=== PATIENT | female | born 1975 | race Caucasian/White ===

== ENCOUNTER 2020-11-19 04:05 | Emergency (ER) | payer OTHER ==
[~2020-11-19] VITALS: Ht 157.5 cm; Wt 56.7 kg
[2020-11-19 04:05] VITALS: BP_SYST 129
--- NOTE | 2020-11-19 04:05 | NUR ---
Pt ambulatory, AAO x 4 c/o rapid heart beat which began just an hour ago. The patient stated that she felt her heart speed up, and developed a dry mouth. She denied any dizziness or lightheadedness, denied shortness of breath. She stated that she has been experiencing some abdominal pain. No nausea/vomiting. She stated that one month ago, she had a similar episode and was diagnosed with A-Fib. Patient breathing easy, unlbored. Awating ER MD to minor
--- NOTE | 2020-11-19 04:23 | NUR ---
GRAHAM Sanchez examining patient.
[2020-11-19] MEDS ORDERED: DILT60TA3 PO (04:38)
[2020-11-19] MEDS ORDERED: CITA40TA22 PO (04:39)
[2020-11-19] MEDS ORDERED: ALPR0.5T PO (04:40)
[2020-11-19 04:49] LABS: BASOPHILS # (AUTO) 0.1 K/uL (0.0-0.2); EOSINOPHILS # (AUTO) 0.1 K/uL (0.0-0.4); EOSINOPHILS % (AUTO) 1.7 % (0.0-4.0); HEMATOCRIT 42.1 % (36-48); HEMOGLOBIN 13.9 g/dL (12.0-16.0); LYMPHOCYTES # (AUTO) 4.5 K/uL (1.0-5.5); LYMPHOCYTES % (AUTO) 60.7 % (20.5-51.5); MEAN CORPUSCULAR HEMOGLOBIN 30 pg (27-31); MEAN CORPUSCULAR HGB CONC 33 % (32-36); MEAN CORPUSCULAR VOLUME 90 fL (79.0-98.0); MONOCYTES # (AUTO) 0.5 K/uL (0.0-1.0); MONOCYTES % (AUTO) 6.6 % (1.7-9.3); NEUTROPHILS # (AUTO) 2.2 K/uL (1.8-7.7); PLATELET COUNT (AUTO) 415 K/uL (130-430); RED BLOOD CELL COUNT(AUTO) 4.69 MIL/uL (4.2-6.2); WHITE BLOOD COUNT (AUTO) 7.5 K/uL (4.8-10.8)
[2020-11-19 04:58] LABS: CREATININE 0.91 mg/dL (0.55-1.30); POTASSIUM 3.3 mmol/L (3.5-5.1)
[2020-11-19 05:04] LABS: ALBUMIN 4.1 g/dL (3.4-4.8); TOTAL BILIRUBIN 0.2 mg/dL (0.0-1.0)
[2020-11-19 05:17] LABS: INR 0.9 (0.8-1.2); PROTHROMBIN TIME 9.3 SECS (9.5-12.5)
[2020-11-19 05:28] LABS: BILIRUBIN,URINE NEGATIVE (NEGATIVE); BLOOD, URINE 3+ (NEGATIVE); CLARITY/URINE CLOUDY (CLEAR); COLOR,URINE RED (YELLOW); GLUCOSE,URINE NEGATIVE (NEGATIVE); KETONES,URINE TRACE (NEGATIVE); LEUKOCYTE ESTERASE ,URINE TRACE (NEGATIVE); NITRITE, URINE POSITIVE (NEGATIVE); PROTEIN URINE 2+ (NEGATIVE); UROBILINOGEN,URINE 0.2 (0.2-1.0)
[2020-11-19 05:32] LABS: BACTERIA,URINE MODERATE /HPF (None Seen); RBC,URINE >100 /HPF (0-3)
[2020-11-19] MEDS ORDERED: cephALEXin 500 MG CAPSULE ONE (05:56)
[2020-11-19] MEDS ORDERED: PANTOPRAZOLE SODIUM 40 MG TAB ONE (05:56)
[2020-11-19] MEDS ORDERED: cephALEXin 500 MG CAPSULE PO ONE (06:00)
[2020-11-19] MEDS ORDERED: PANTOPRAZOLE SODIUM 40 MG TAB PO ONE (06:00)
[2020-11-19 06:05] VITALS: BP_SYST 125
--- NOTE | 2020-11-19 06:05 | NUR ---
Patient given written and verbal discharge instructions and verbalizes understanding. ER MD discussed with patient the results and treatment provided. Patient in stable condition. ID arm band removed. Rx of Keflex 500mg and Protoix 40 mg given. Patient educated on pain management and to follow up with PMD. Pain Scale 0/10. Opportunity for questions provided and answered.
== END 2020-11-19 06:05 | disposition home or self-care (01) ==
LOC: SED 04:05
DX: K85.90 Acute pancreatitis without necrosis or infection, unspecified (principal); K21.9 Gastro-esophageal reflux disease without esophagitis; N39.0 Urinary tract infection, site not specified; Z79.899 Other long term (current) drug therapy
CPT/HCPCS: 36415; 71045; 80053; 81000-TC; 82150-TC; 82550-TC; 83690-TC; 83880; 84484; 85025; 85379; 85610-TC; 87086; 93005; 99285

== ENCOUNTER 2021-03-29 14:19 | Emergency (ER) | payer OTHER ==
[~2021-03-29] VITALS: Ht 157.5 cm; Wt 56.7 kg
[~2021-03-29 14:19] MED LIST: ALPR0.5T PO; CITA40TA22 PO; DILT60TA3 PO
[2021-03-29 14:20] VITALS: BP_SYST 143
[2021-03-29 14:52] LABS: BASOPHILS % (AUTO) 0.3 % (0.0-2.0); EOSINOPHILS % (AUTO) 0.6 % (0.0-4.0); HEMATOCRIT 39.1 % (36-48); HEMOGLOBIN 12.8 g/dL (12.0-16.0); LYMPHOCYTES # (AUTO) 4.2 K/uL (1.0-5.5); LYMPHOCYTES % (AUTO) 58.9 % (20.5-51.5); MEAN CORPUSCULAR HEMOGLOBIN 29 pg (27-31); MEAN CORPUSCULAR HGB CONC 33 % (32-36); MEAN CORPUSCULAR VOLUME 89 fL (79.0-98.0); MONOCYTES # (AUTO) 0.6 K/uL (0.0-1.0); MONOCYTES % (AUTO) 7.6 % (1.7-9.3); NEUTROPHILS # (AUTO) 2.4 K/uL (1.8-7.7); NEUTROPHILS % (AUTO) 32.6 % (40.0-70.0); PLATELET COUNT (AUTO) 374 K/uL (130-430); RED CELL DISTRIBUTION WIDTH 13.7 % (9.0-15.0); WHITE BLOOD COUNT (AUTO) 7.2 K/uL (4.8-10.8)
[2021-03-29 14:54] LABS: ANION GAP 9 (5-15); CALCIUM 8.9 mg/dL (8.4-11.0); CHLORIDE 103 mmol/L (98-107); GLUCOSE 101 mg/dL (70-99); POTASSIUM 3.9 mmol/L (3.5-5.1); SODIUM SERUM 140 mmol/L (136-145); UREA NITROGEN, BLOOD 12 mg/dL (8-21)
[2021-03-29 14:55] LABS: GFR AFRICAN AMERICAN 69 mL/min (>90)
[2021-03-29] MEDS ORDERED: MAGNESIUM SULFATE 1 GM/2 ML VIAL IVP ONE (15:00)
[2021-03-29] MEDS ORDERED: LR 1,000 ML IV ONE (15:00)
[2021-03-29 15:06] LABS: ALANINE AMINOTRANSFERASE 34 U/L (12-78); ASPARTATE AMINOTRANSFERASE 24 U/L (10-37); LIPASE 150 U/L (73-393); TOTAL BILIRUBIN 0.3 mg/dL (0.0-1.0)
[2021-03-29 15:28] LABS: BILIRUBIN,DIRECT 0.1 mg/dL (0.0-0.3)
[2021-03-29] MEDS ORDERED: MAGNESIUM SULFATE 50 ML IV ONE (15:45)
[2021-03-29 17:53] VITALS: BP_SYST 116
== END 2021-03-29 17:50 | disposition home or self-care (01) ==
LOC: SED 14:19
DX: R00.2 Palpitations (principal); R55 Syncope and collapse; I48.0 Paroxysmal atrial fibrillation
CPT/HCPCS: 36415; 71045; 80048; 80076; 81025; 83690; 83880; 84484; 84703; 85025; 93005; 96374; 99285; J3475

== ENCOUNTER 2022-11-10 19:01 | Emergency (ER) | payer OTHER ==
[~2022-11-10] VITALS: Ht 157.5 cm; Wt 56.7 kg
[2022-11-10 19:29] VITALS: BP_SYST 148
--- NOTE | 2022-11-10 19:31 | NUR ---
ER in triage examining patient.
--- NOTE | 2022-11-10 19:36 | NUR ---
Patient triaged and placed in waiting room. VS checked and patient appears in no acute distress at this time. Accompanied by self, awaiting available bed.
[2022-11-10 20:49] LABS: BASOPHILS % (AUTO) 0.4 % (0.0-2.0); EOSINOPHILS % (AUTO) 0.8 % (0.0-4.0); HEMATOCRIT 37.4 % (36-48); HEMOGLOBIN 12.2 g/dL (12.0-16.0); LYMPHOCYTES # (AUTO) 1.5 K/uL (1.0-5.5); LYMPHOCYTES % (AUTO) 23.5 % (20.5-51.5); MEAN CORPUSCULAR HEMOGLOBIN 28 pg (27-31); MEAN CORPUSCULAR HGB CONC 33 % (32-36); MEAN CORPUSCULAR VOLUME 87 fL (79.0-98.0); MONOCYTES # (AUTO) 0.3 K/uL (0.0-1.0); MONOCYTES % (AUTO) 5.3 % (1.7-9.3); NEUTROPHILS # (AUTO) 4.5 K/uL (1.8-7.7); PLATELET COUNT (AUTO) 355 K/uL (130-430); RED CELL DISTRIBUTION WIDTH 13.4 % (9.0-15.0); WHITE BLOOD COUNT (AUTO) 6.5 K/uL (4.8-10.8)
[2022-11-10 21:00] LABS: ANION GAP 6 (5-15); CALCIUM 9.1 mg/dL (8.4-11.0); CHLORIDE 104 mmol/L (98-107); CREATININE 0.83 mg/dL (0.55-1.30); GLUCOSE 117 mg/dL (70-99); UREA NITROGEN, BLOOD 14 mg/dL (8-21)
[2022-11-10 21:06] LABS: ALANINE AMINOTRANSFERASE 33 U/L (12-78); AMYLASE 111 U/L (0-100); ASPARTATE AMINOTRANSFERASE 27 U/L (10-37); GFR AFRICAN AMERICAN 94 mL/min (>90); LACTATE DEHYDROGENASE 157 U/L (81-234); LIPASE 153 U/L (73-393); TOTAL BILIRUBIN 0.2 mg/dL (0.0-1.0)
[2022-11-10 21:07] LABS: C-REACTIVE PROTEIN QUANT < 0.2 mg/dL (0-0.5)
[2022-11-10] MEDS ORDERED: GOLYTELY / COLYTE SOLUTION 4 LITERS PO ONE (21:30)
--- NOTE | 2022-11-10 22:38 | NUR ---
Patient eloped from facility. No further treatment provided. ER MD aware
[2022-11-10 23:25] LABS: ACETONE, SERUM NEGATIVE (NEGATIVE)
== END 2022-11-10 22:38 | disposition left against medical advice (07) ==
LOC: SED 19:01
DX: K59.00 Constipation, unspecified (principal); R10.30 Lower abdominal pain, unspecified; R11.0 Nausea; Z79.899 Other long term (current) drug therapy
CPT/HCPCS: 36415; 76376; 80053; 82009; 82150; 83605; 83615; 83690; 84703; 85025; 86140; 99284